=== PATIENT | female | born 1980 | race Caucasian/White ===

== ENCOUNTER 2022-07-17 01:02 | Inpatient (IN) | payer OTHER ==
[~2022-07-17] VITALS: Ht 162.6 cm; Wt 118.8 kg
[2022-07-17] VITALS (8 sets, daily range): BP systolic 118–176; BP diastolic 73–108
[2022-07-17] MEDS ORDERED: IBUPROFEN 600 MG TAB PO STA (01:25)
[2022-07-17] MEDS ORDERED: SODIUM CHLORIDE 0.9% 1000ML 1,000 ML IV ONE (01:30)
[2022-07-17] MEDS ORDERED: ONDANSETRON HCL INJ 2MG/ML 2ML 2 MG/ML VIAL IV STA (01:31)
[2022-07-17 01:46] LABS: BASOPHILS # (AUTO) 0.1 (0.0-0.1); BASOPHILS % 0.4 % (0.0-1.0); EOSINOPHILS % 0.3 % (0.0-6.0); HEMATOCRIT 42.4 % (34.2-44.1); LYMPHOCYTES # (AUTO) 0.9 (1.0-3.2); LYMPHOCYTES % 7.3 % (18.0-39.1); MEAN CORPUSCULAR HEMOGLOBIN 31.9 pg (28-32); MEAN CORPUSCULAR VOLUME 96.6 fL (81-99); MONOCYTES # (AUTO) 1.3 (0.2-0.8); MONOCYTES % 10.6 % (4.4-11.3); NEUTROPHILS # (AUTO) 9.6 (2.1-6.9); NEUTROPHILS % 81.1 % (38.7-80.0); PLATELET COUNT 169 x10e3/uL (140-360); RED BLOOD COUNT 4.39 x10e6/uL (3.6-5.1); RED CELL DISTRIBUTION WIDTH 12.7 % (11.7-14.4)
[2022-07-17 01:50] LABS: CLARITY,URINE CLOUDY (CLEAR); COLOR,URINE YELLOW (YELLOW)
[2022-07-17 01:51] LABS: KETONES,URINE 2+ (NEGATIVE); LEUKOCYTE ESTERASE ,URINE SMALL (NEGATIVE); NITRITE,URINE POSITIVE (NEGATIVE); PROTEIN,URINE DIPSTICK >=300 (NEGATIVE); URINE UROBILINOGEN 0.2 mg/dL (0.2 - 1)
[2022-07-17 01:55] LABS: BACTERIA,URINE MODERATE /HPF; EPITHELIAL CELLS,URINE FEW /LPF; WBC,URINE (MAN) >50 /HPF (0-5)
[2022-07-17 02:05] LABS: ALBUMIN 3.4 g/dL (3.5-5.0); ALBUMIN/GLOBULIN RATIO 0.9 (0.8-2.0); ANION GAP 18.6 mmol/L (8-16); CALCIUM 9.3 mg/dL (8.4-10.2); CREATININE, SERUM 0.86 mg/dL (0.57-1.11); POTASSIUM 3.6 mmol/L (3.5-5.1)
[2022-07-17 03:10] LABS: INR 0.98; PROTHROMBIN TIME 13.5 seconds (11.9-14.5)
[2022-07-17 03:11] LABS: PARTIAL THROMBOPLASTIN TIME 34.7 seconds (23.8-35.5)
[2022-07-17] MEDS: SODIUM CHLORIDE 0.9% 1000ML 1,000 ML IV SCH ×3 (04:48→19:15)
[2022-07-17] MEDS: Morphine 4mg INJECTION 4 MG/ML INJ IV PRN ×3 (05:44→18:23)
[2022-07-17] MEDS: ACETAMINOPHEN 1000 MG/100 ML IV PRN ×3 (08:48→22:47)
[2022-07-17] MEDS: GABAPENTIN 100 MG CAP PO SCH ×3 (09:36→20:26)
[2022-07-17] MEDS: SENNA-S TABLET PO SCH ×2 (09:36→17:29)
[2022-07-17] MEDS ORDERED: KETOROLAC TROMETHAMINE 30 MG/ML VIAL IV ONE (10:00)
[2022-07-17] MEDS: PHENAZOPYRIDINE HCL 100 MG TAB PO PRN ×2 (17:29→22:47)
[2022-07-17] MEDS: KETOROLAC TROMETHAMINE 30 MG/ML VIAL IV PRN (20:27)
[2022-07-18] VITALS (8 sets, daily range): BP systolic 115–141; BP diastolic 75–95
[2022-07-18] MEDS: Morphine 4mg INJECTION 4 MG/ML INJ IV PRN ×3 (02:24→16:20)
[2022-07-18] MEDS: SODIUM CHLORIDE 0.9% 1000ML 1,000 ML IV SCH ×3 (02:25→16:58)
[2022-07-18] MEDS: PHENAZOPYRIDINE HCL 100 MG TAB PO PRN (03:41)
[2022-07-18] MEDS: KETOROLAC TROMETHAMINE 30 MG/ML VIAL IV PRN ×3 (03:41→18:18)
[2022-07-18 05:18] LABS: BASOPHILS % 0.3 % (0.0-1.0); EOSINOPHILS % 0.4 % (0.0-6.0); HEMATOCRIT 35.6 % (34.2-44.1); HEMOGLOBIN 11.4 g/dL (12.0-16.0); LYMPHOCYTES % 11.1 % (18.0-39.1); MEAN CORPUSCULAR HEMOGLOBIN 31.3 pg (28-32); MEAN CORPUSCULAR VOLUME 97.8 fL (81-99); NEUTROPHILS # (AUTO) 7.1 (2.1-6.9); NEUTROPHILS % 76.8 % (38.7-80.0); PLATELET COUNT 144 x10e3/uL (140-360); RED BLOOD COUNT 3.64 x10e6/uL (3.6-5.1)
[2022-07-18 05:47] LABS: ALBUMIN 2.5 g/dL (3.5-5.0); ALBUMIN/GLOBULIN RATIO 0.7 (0.8-2.0); CREATININE, SERUM 0.66 mg/dL (0.57-1.11)
[2022-07-18] MEDS: ACETAMINOPHEN 1000 MG/100 ML IV PRN ×2 (05:57→21:10)
[2022-07-18] MEDS: SENNA-S TABLET PO SCH ×2 (08:37→16:20)
[2022-07-18] MEDS: GABAPENTIN 100 MG CAP PO SCH ×3 (08:37→21:09)
[2022-07-18] MEDS: TOLTERODINE TARTRATE 2 MG CAPCR PO SCH (10:15)
[2022-07-18] MEDS ORDERED: ACETAMINOPHEN 1000 MG/100 ML IV SCH (18:00)
[2022-07-18] MEDS: TEMAZEPAM 15 MG CAP PO PRN (21:09)
[2022-07-18] MEDS: TAMSULOSIN HCL 0.4 MG CAP PO SCH (21:09)
[2022-07-19] VITALS (8 sets, daily range): BP systolic 115–152; BP diastolic 81–109
[2022-07-19] MEDS: KETOROLAC TROMETHAMINE 30 MG/ML VIAL IV PRN ×4 (00:15→20:35)
[2022-07-19] MEDS: ACETAMINOPHEN 1000 MG/100 ML IV PRN ×3 (03:30→17:34)
[2022-07-19] MEDS: SODIUM CHLORIDE 0.9% 1000ML 1,000 ML IV SCH (06:53)
[2022-07-19] MEDS: PHENAZOPYRIDINE HCL 100 MG TAB PO PRN ×2 (08:08→17:26)
[2022-07-19] MEDS: GABAPENTIN 100 MG CAP PO SCH ×3 (08:09→20:34)
[2022-07-19] MEDS: TOLTERODINE TARTRATE 2 MG CAPCR PO SCH (08:09)
[2022-07-19] MEDS: SENNA-S TABLET PO SCH ×2 (08:09→17:26)
[2022-07-19] MEDS: Morphine 4mg INJECTION 4 MG/ML INJ IV PRN (08:10)
[2022-07-19] MEDS ORDERED: SOLIFENACIN SUCCINATE 5 MG TAB PO SCH (09:00)
[2022-07-19 09:48] LABS: ANION GAP 15.4 mmol/L (8-16); CALCIUM 8.7 mg/dL (8.4-10.2); CREATININE, SERUM 0.71 mg/dL (0.57-1.11); POTASSIUM 3.4 mmol/L (3.5-5.1)
[2022-07-19] MEDS: HYDROMORPHONE 1MG/1ML INJ IV PRN ×2 (17:26→19:53)
[2022-07-19] MEDS: ONDANSETRON HCL INJ 2MG/ML 2ML 2 MG/ML VIAL IV PRN (17:26)
[2022-07-19] MEDS: TAMSULOSIN HCL 0.4 MG CAP PO SCH (20:34)
[2022-07-20] VITALS (8 sets, daily range): BP systolic 129–153; BP diastolic 93–98
[2022-07-20] MEDS: TEMAZEPAM 15 MG CAP PO PRN (00:06)
[2022-07-20] MEDS: HYDROMORPHONE 1MG/1ML INJ IV PRN ×8 (00:13→20:50)
[2022-07-20] MEDS: ACETAMINOPHEN 325 MG TAB PO PRN ×2 (01:37→08:16)
[2022-07-20 05:21] LABS: ANION GAP 15.5 mmol/L (8-16); CALCIUM 8.7 mg/dL (8.4-10.2); CREATININE, SERUM 0.64 mg/dL (0.57-1.11); POTASSIUM 3.5 mmol/L (3.5-5.1)
[2022-07-20] MEDS: ONDANSETRON HCL INJ 2MG/ML 2ML 2 MG/ML VIAL IV PRN ×4 (08:11→20:50)
[2022-07-20] MEDS: GABAPENTIN 100 MG CAP PO SCH ×3 (08:11→20:51)
[2022-07-20] MEDS: SENNA-S TABLET PO SCH ×2 (08:16→16:27)
[2022-07-20] MEDS: TOLTERODINE TARTRATE 2 MG CAPCR PO SCH (08:16)
[2022-07-20] MEDS: KETOROLAC TROMETHAMINE 30 MG/ML VIAL IV PRN ×2 (10:46→18:36)
[2022-07-20] MEDS: TAMSULOSIN HCL 0.4 MG CAP PO SCH (20:50)
[2022-07-21] VITALS: BP 150/98
[2022-07-21] MEDS: TEMAZEPAM 15 MG CAP PO PRN (00:15)
[2022-07-21] MEDS: ACETAMINOPHEN 1000 MG/100 ML IV PRN ×2 (00:16→07:27)
[2022-07-21 04:00] VITALS: BP 131/98
[2022-07-21] MEDS: KETOROLAC TROMETHAMINE 30 MG/ML VIAL IV PRN (04:24)
[2022-07-21 08:50] VITALS: BP 115/87
[2022-07-21 08:54] VITALS: BP 115/87
[2022-07-21] MEDS: SENNA-S TABLET PO SCH (09:39)
[2022-07-21] MEDS: GABAPENTIN 100 MG CAP PO SCH (09:39)
[2022-07-21] MEDS ORDERED: NEURONTIN100 MG PO (10:42)
[2022-07-21] MEDS ORDERED: FLOMAX0.4 MG PO (10:44)
[2022-07-21] MEDS ORDERED: VESICARE5 MG PO (10:44)
[2022-07-21] MEDS ORDERED: Tylenol #3 PO (10:48)
[2022-07-21] MEDS ORDERED: ONDANSETRON ODT4 MG PO (10:48)
[2022-07-21] MEDS ORDERED: KEFLEX125 MG/5 M PO (10:49)
== END 2022-07-21 11:17 | disposition home or self-care (01) | DRG 872 ==
LOC: ER 01:18 → ERHOLD 03:10 → MED/SURG 04:09
PROVIDERS: ADMIT Internal Medicine; ATTEND Internal Medicine
DX: A41.9 Sepsis, unspecified organism (principal); N39.0 Urinary tract infection, site not specified; N20.1 Calculus of ureter; N12 Tubulo-interstitial nephritis, not specified as acute or chronic; Z68.42 Body mass index [BMI] 45.0-49.9, adult; N10 Acute pyelonephritis; R31.9 Hematuria, unspecified; E66.01 Morbid (severe) obesity due to excess calories; N20.0 Calculus of kidney; Z20.822 Contact with and (suspected) exposure to COVID-19
CPT/HCPCS: 36415; 74018; 74176; 80048; 80053; 81001; 83605; 84702; 85025; 85610; 85730; 87040; 87071; 87086; 87186; 87205; 99252; 99284; J0696; J1170; J1885; J2270; J2405; J7030

== ENCOUNTER → 2022-08-20 | Day surgery (SDC) | payer OTHER ==
[2022-08-19 15:40] LABS: BASOPHILS % 0.5 % (0.0-1.0); EOSINOPHILS # (AUTO) 0.1 (0.0-0.4); HEMATOCRIT 40.5 % (34.2-44.1); LYMPHOCYTES # (AUTO) 1.7 (1.0-3.2); LYMPHOCYTES % 26.5 % (18.0-39.1); MEAN CORPUSCULAR HEMOGLOBIN 30.7 pg (28-32); MEAN CORPUSCULAR HGB CONC 32.1 g/dL (31-35); MEAN CORPUSCULAR VOLUME 95.7 fL (81-99); MONOCYTES # (AUTO) 0.5 (0.2-0.8); MONOCYTES % 7.8 % (4.4-11.3); NEUTROPHILS # (AUTO) 4.1 (2.1-6.9); PLATELET COUNT 172 x10e3/uL (140-360); RED BLOOD COUNT 4.23 x10e6/uL (3.6-5.1); RED CELL DISTRIBUTION WIDTH 13.8 % (11.7-14.4)
[2022-08-19 16:07] LABS: POTASSIUM 4.4 mmol/L (3.5-5.1)
[2022-08-19 16:08] LABS: ANION GAP 14.4 mmol/L (8-16); CALCIUM 9.4 mg/dL (8.4-10.2); CREATININE, SERUM 0.89 mg/dL (0.57-1.11)
[~2022-08-20] MED LIST: CELEBREX200 MG PO; DEXAMETHASONE SOD PHOS INJ 4 MG/ML SDV ONE; EPHEDRINE SULFATE INJ 50 MG/ML VIAL ONE; FAMOTIDINE 20 MG/2 ML VIAL IV ONE; FENTANYL CITRATE/PF 100MCG/2 ML INJ ONE; FLOMAX0.4 MG PO; GENTAMICIN 80MG/NS 100 ML 200 ML IV ONE; GLYCOPYRROLATE INJ 0.2 MG/ML VIAL ONE; IOPAMIDOL 610MG/1ML 300 MG/ML VIAL IV ONE; KEFLEX125 MG/5 M PO; LACTATED RINGER'S 1,000 ML ONE; LIDOCAINE HCL 2% LOCAL INJ 5 ML SDV VIAL INJ ONE; MIDAZOLAM HCL 2 MG/2 ML VIAL ONE; NEURONTIN100 MG PO; ONDANSETRON HCL INJ 2MG/ML 2ML 2 MG/ML VIAL ONE; ONDANSETRON ODT4 MG PO; PIPERACILLIN/TAZOBACTAM 3.375 GM VIAL ONE; POVIDONE IODINE 0.05% 0.05 % ML PO ONE; PROPOFOL IV EMULSION 10 MG/ML 20 ML VIAL ONE; SEVOFLURANE INHAL SOLN 250 ML PEN BTL ONE; Tylenol #3 PO; VESICARE5 MG PO
[2022-08-20 13:20] VITALS: BP 125/88
== END | disposition home or self-care (01) ==
LOC: OR 07:48
PROVIDERS: ATTEND Urology
DX: N13.2 Hydronephrosis with renal and ureteral calculous obstruction (principal); N39.0 Urinary tract infection, site not specified; Z43.6 Encounter for attention to other artificial openings of urinary tract; R80.9 Proteinuria, unspecified; N39.3 Stress incontinence (female) (male); N81.6 Rectocele; N81.2 Incomplete uterovaginal prolapse; N36.41 Hypermobility of urethra; I10 Essential (primary) hypertension; Z91.041 Radiographic dye allergy status; Z01.812 Encounter for preprocedural laboratory examination; Z01.818 Encounter for other preprocedural examination; Z79.899 Other long term (current) drug therapy; Z68.36 Body mass index [BMI] 36.0-36.9, adult
CPT/HCPCS: 36415; 50389; 50590; 52332; 74018; 80048; 81025 ×2; 84550; 85025; 87086; C1758; C1769; C1874; J1100; J1580; J2001; J2250; J2405; J2543; J2704; J3010; J7121; Q9967

== ENCOUNTER 2022-09-05 13:59 | Emergency (ER) | payer OTHER ==
[~2022-09-05] VITALS: Ht 162.6 cm; Wt 118.8 kg
[~2022-09-05 13:59] MED LIST changes: -DEXAMETHASONE SOD PHOS INJ 4 MG/ML SDV ONE; -EPHEDRINE SULFATE INJ 50 MG/ML VIAL ONE; -FAMOTIDINE 20 MG/2 ML VIAL IV ONE; -FENTANYL CITRATE/PF 100MCG/2 ML INJ ONE; -GENTAMICIN 80MG/NS 100 ML 200 ML IV ONE; -GLYCOPYRROLATE INJ 0.2 MG/ML VIAL ONE; -IOPAMIDOL 610MG/1ML 300 MG/ML VIAL IV ONE; -LACTATED RINGER'S 1,000 ML ONE; -LIDOCAINE HCL 2% LOCAL INJ 5 ML SDV VIAL INJ ONE; -MIDAZOLAM HCL 2 MG/2 ML VIAL ONE; -ONDANSETRON HCL INJ 2MG/ML 2ML 2 MG/ML VIAL ONE; -PIPERACILLIN/TAZOBACTAM 3.375 GM VIAL ONE; -POVIDONE IODINE 0.05% 0.05 % ML PO ONE; -PROPOFOL IV EMULSION 10 MG/ML 20 ML VIAL ONE; -SEVOFLURANE INHAL SOLN 250 ML PEN BTL ONE
[2022-09-05] MEDS ORDERED: SODIUM CHLORIDE 0.9% 1000ML 1,000 ML IV SCH (14:30)
[2022-09-05 14:38] LABS: BASOPHILS % 0.2 % (0.0-1.0); HEMATOCRIT 43.5 % (34.2-44.1); HEMOGLOBIN 14.2 g/dL (12.0-16.0); LYMPHOCYTES # (AUTO) 0.8 (1.0-3.2); LYMPHOCYTES % 7.5 % (18.0-39.1); MEAN CORPUSCULAR HEMOGLOBIN 30.5 pg (28-32); MEAN CORPUSCULAR HGB CONC 32.6 g/dL (31-35); MEAN CORPUSCULAR VOLUME 93.5 fL (81-99); MONOCYTES # (AUTO) 0.7 (0.2-0.8); MONOCYTES % 7.1 % (4.4-11.3); NEUTROPHILS # (AUTO) 8.6 (2.1-6.9); PLATELET COUNT 178 x10e3/uL (140-360); RED BLOOD COUNT 4.65 x10e6/uL (3.6-5.1); RED CELL DISTRIBUTION WIDTH 13.2 % (11.7-14.4)
[2022-09-05] MEDS ORDERED: SODIUM CHLORIDE 0.9% 1000ML 1,000 ML ONE (14:39)
[2022-09-05 14:50] LABS: CLARITY,URINE CLOUDY (CLEAR); COLOR,URINE YELLOW (YELLOW); LEUKOCYTE ESTERASE ,URINE SMALL (NEGATIVE); NITRITE,URINE POSITIVE (NEGATIVE); PROTEIN,URINE DIPSTICK 2+ (NEGATIVE)
[2022-09-05 14:51] LABS: KETONES,URINE NEGATIVE (NEGATIVE); URINE UROBILINOGEN 0.2 mg/dL (0.2 - 1)
[2022-09-05 14:59] LABS: BACTERIA,URINE MANY /HPF; EPITHELIAL CELLS,URINE FEW /LPF; WBC,URINE (MAN) >50 /HPF (0-5)
[2022-09-05 15:04] LABS: ALBUMIN 3.9 g/dL (3.5-5.0); ANION GAP 13.9 mmol/L (8-16); CALCIUM 9.5 mg/dL (8.4-10.2); CREATININE, SERUM 0.86 mg/dL (0.57-1.11); POTASSIUM 3.9 mmol/L (3.5-5.1)
[2022-09-05] MEDS ORDERED: KETOROLAC TROMETHAMINE 30 MG/ML VIAL IV STA (15:53)
[2022-09-05] MEDS ORDERED: CEFUROXIME250 MG PO (15:56)
[2022-09-05] MEDS ORDERED: CEFTRIAXONE 2 GM in SODIUM CHLORIDE 0.9% 100 ML IV ONE (16:00)
[2022-09-05] MEDS ORDERED: ACETAMINOPHEN 325 MG TAB PO ONE (16:00)
[2022-09-05 17:39] VITALS: O2SAT 99
== END 2022-09-05 17:46 | disposition home or self-care (01) ==
LOC: ER 14:06
DX: R50.9 Fever, unspecified (principal); N39.0 Urinary tract infection, site not specified; R10.2 Pelvic and perineal pain
CPT/HCPCS: 36415; 74018; 80053; 81001; 83605; 84702; 85025; 87040; 87086; 87186; 99283; J0696; J1885; J7030; J7050

== ENCOUNTER → 2022-10-25 | Day surgery (SDC) | payer OTHER ==
[~2022-10-25] MED LIST changes: +ACETAMINOPHEN-1 EAC3; +AZO1 EACH; +CEFTRIAXONE 1 GM VIAL ONE; +CEFUROXIME250 MG PO; +CIPRO250 MG PO; +DEXAMETHASONE SOD PHOS INJ 4 MG/ML SDV ONE; +EPHEDRINE SULFATE INJ 50 MG/ML VIAL ONE; +FENTANYL CITRATE/PF 100MCG/2 ML INJ ONE; +GENTAMICIN 80MG/NS 100 ML 200 ML IV ONE; +GLYCOPYRROLATE INJ 0.2 MG/ML VIAL ONE; +IOPAMIDOL 610MG/1ML 300 MG/ML VIAL IV ONE; +KETOROLAC TROMETHAMINE 30 MG/ML VIAL ONE; +LACTATED RINGER'S 1,000 ML ONE; +LIDOCAINE HCL 2% LOCAL INJ 5 ML SDV VIAL INJ ONE; +MIDAZOLAM HCL 2 MG/2 ML VIAL ONE; +ONDANSETRON HCL INJ 2MG/ML 2ML 2 MG/ML VIAL ONE; +POVIDONE IODINE 0.05% 0.05 % ML PO ONE; +PROPOFOL IV EMULSION 10 MG/ML 20 ML VIAL ONE
[2022-10-25 06:09] LABS: BASOPHILS # (AUTO) 0.1 (0.0-0.1); BASOPHILS % 0.8 % (0.0-1.0); EOSINOPHILS # (AUTO) 0.1 (0.0-0.4); EOSINOPHILS % 2.3 % (0.0-6.0); HEMATOCRIT 43.2 % (34.2-44.1); HEMOGLOBIN 13.9 g/dL (12.0-16.0); LYMPHOCYTES # (AUTO) 2.3 (1.0-3.2); LYMPHOCYTES % 37.5 % (18.0-39.1); MEAN CORPUSCULAR HEMOGLOBIN 29.5 pg (28-32); MEAN CORPUSCULAR HGB CONC 32.2 g/dL (31-35); MEAN CORPUSCULAR VOLUME 91.7 fL (81-99); MONOCYTES # (AUTO) 0.4 (0.2-0.8); MONOCYTES % 5.9 % (4.4-11.3); NEUTROPHILS # (AUTO) 3.3 (2.1-6.9); NEUTROPHILS % 53.3 % (38.7-80.0); PLATELET COUNT 236 x10e3/uL (140-360); RED BLOOD COUNT 4.71 x10e6/uL (3.6-5.1); RED CELL DISTRIBUTION WIDTH 13.2 % (11.7-14.4)
[2022-10-25 06:41] LABS: ANION GAP 12.9 mmol/L (8-16); CREATININE, SERUM 0.76 mg/dL (0.57-1.11); POTASSIUM 3.9 mmol/L (3.5-5.1)
[2022-10-25 08:35] VITALS: BP 118/80; PULSE 72; RESP 17; O2SAT 97
== END | disposition home or self-care (01) ==
LOC: OR 05:19
PROVIDERS: ATTEND Urology
DX: N20.0 Calculus of kidney (principal); Z46.6 Encounter for fitting and adjustment of urinary device; N20.1 Calculus of ureter; N28.89 Other specified disorders of kidney and ureter; N39.0 Urinary tract infection, site not specified; N81.2 Incomplete uterovaginal prolapse; N81.6 Rectocele; N36.41 Hypermobility of urethra; R80.9 Proteinuria, unspecified; N39.3 Stress incontinence (female) (male); I10 Essential (primary) hypertension; E66.9 Obesity, unspecified; Z88.8 Allergy status to other drugs, medicaments and biological substances; Z91.041 Radiographic dye allergy status; Z79.899 Other long term (current) drug therapy; Z68.36 Body mass index [BMI] 36.0-36.9, adult
CPT/HCPCS: 36415; 52352; 74018; 74420; 80048; 81025; 84550; 85025; 87086; 88300; C1766; C1769; J0696; J1100; J1580; J1885; J2001; J2250; J2405; J2704; J3010; J7121; Q9967